=== PATIENT | male | born 1995 | race Caucasian/White ===

== ENCOUNTER 2021-04-16 09:12 | Emergency (ER) | payer MEDICAID ==
[2021-04-16] MEDS ORDERED: LORazepam 2 MG/ML SDV ONE (09:46)
[2021-04-16] MEDS ORDERED: Haloperidol Lactate 5 MG/ML SDV ONE (09:51)
[2021-04-16] MEDS ORDERED: Haloperidol Lactate 5 MG/ML SDV IM ONE (10:00)
[2021-04-16] MEDS ORDERED: LORazepam 2 MG/ML SDV IM ONE (10:00)
[2021-04-16] MEDS ORDERED: Sodium Chloride 0.9% 2.5 ML Syringe FLUSH PRN (10:09)
[2021-04-16] MEDS ORDERED: Ondansetron 4 MG/2 ML SDV IVPUSH ONE (10:09)
[2021-04-16] MEDS ORDERED: Sodium Chloride 0.9% 1,000 ML IV ONE (10:09)
[2021-04-16] MEDS ORDERED: Sodium Chloride 0.9% 10 ML Syringe FLUSH PRN (10:09)
[2021-04-16 11:00] LABS: BLOOD UREA NITROGEN,BUN 14 mg/dL (7.0-18.0); CARBON DIOXIDE,CO2 18.2 mmol/L (21.0-32.0); CHLORIDE,CL 100 mmol/L (98-107); GLUCOSE RANDOM 116 mg/dL (74-106); LIPASE 75 U/L (73-393); POTASSIUM,K 4.3 mmol/L (3.5-5.1); SODIUM,NA 141 mmol/L (136-148)
[2021-04-16] MEDS ORDERED: LORazepam 2 MG/ML SDV IVPUSH ONE (11:20)
[2021-04-16] MEDS ORDERED: OLANZapine 10 MG in Water For Injection, Sterile 2.1 ML IM ONE (12:07)
--- NOTE | 2021-04-16 12:55 | EDM.PDOC ---
ED HPI GENERAL MEDICAL PROBLEM - General Chief Complaint: Behavioral/Psych Stated Complaint: DEHYDRATION Time Seen by Provider: 04/16/21 10:00 - History of Present Illness INITIAL COMMENTS - FREE TEXT/NARRATIVE: HISTORY AND PHYSICAL: History of present illness: This is a 25-year child with history seen for autism who presents ER today with his mom secondary to concern for dehydration. Mother reports he been having issues dehydration for the last 9-month. Patient reports that he has had no recent fevers, vomiting, diarrhea. She reports that he moved his bowels earlier this morning. She reports he had no complaints of abdominal discomfort. She reports he has been having decreased p.o. intake however yesterday she had return to the ER and sat in the parking lot for approximately an hour. While he was here he reports he drank approximately 500 mL of fluid so she had taken home to see how you do. She reports that during the course of the evening he has not eaten or drank very much so he was the ER today for blood evaluation and IV hydration. Mother reports he has had no other symptomatology. She reports that he had multiple new medication changes secondary to his autism and behavior challenges. Review of systems: As per history of present illness and below otherwise all systems reviewed and negative. Past medical history: As per history of present illness and as reviewed below otherwise noncontribu tory. Surgical history: As per history of present illness and as reviewed below otherwise noncontributory. Social history: No reported history of drug abuse. Family history: As per history of present illness and as reviewed below otherwise noncontributory. Physical exam: This patient was seen and evaluated during the 2019 SARS-CoV-2 novel coronavirus pandemic period. Community viral transmission is ongoing at time of this encounter and the emergency department is operating under pandemic response procedures. Constitutional: Patient is oriented to person, place, and time. Appears well- developed and well-nourished. No distress. HEENT: Moist mucous membranes Head: Normocephalic and atraumatic Eyes: Right eye exhibits no discharge. Left eye exhibits no discharge. No scleral icterus Neck: Normal range of motion. No tracheal deviation present. Cardiovascular: Normal rate and regular rhythm. Pulmonary: Effort normal, no respiratory distress. Abdominal: No distention Musculoskeletal: Normal range of motion Neurologic: Alert and awake. Skin: [place], warm and dry. Psychiatric: Labile mood with aggressive behavior at times other times very friendly. Nursing note and vital signs have been reviewed Diagnostics: CBC, CMP, lipase all within normal limits Therapeutics: Ativan, Haldol IM followed by ZOHAIB rios L. Patient also given Zyprexa 10 mg IM after his mom had requested that we give him oral Zyprexa that he is scheduled for today. Assessment and plan: 25-year-old gentleman with a history significant for autism presents ER today secondary to decreased p.o. intake which mother reports is been an ongoing challenge for the last 9 months. Here in the ED, his labs all looked normal and he was given IV fluids as well as Zofran with significant improvement in his affect and symptoms. Patient this time stable for discharge home and continued outpatient monitoring. Reassessment at the time of disposition demonstrates that the patient is in no acute distress. The patient has remained stable throughout the entire ED visit and is without objective evidence for acute process requiring urgent intervention or hospitalization. The patient is stable for discharge, counseling is provided as documented above, discussed symptomatic treatment and specific conditions for return. I have spoken with the patient/caregiver and discussed todays findings, in jerry tion to providing specific details for the plan of care. Questions are answered and there is agreement with the plan. Definitive disposition and diagnosis as appropriate pending reevaluation and review of above. - Related Data Home Meds: Home Meds Ondansetron [Zofran ODT] 4 mg PO Q6H PRN #12 tab.dis 04/16/21 [Rx] ED ROS GENERAL - Review of Systems Review Of Systems: See Below ED EXAM, GENERAL - Physical Exam Exam: See Below Course - Vital Signs Last Recorded V/S: Last Vital Signs Temp Pulse 124 H 04/16/21 11:30 Resp 16 04/16/21 11:30 BP 128/81 04/16/21 11:30 Pulse Ox 97 04/16/21 11:30 - Orders/Labs/Meds Orders: Active Orders 24 hr Category Date Time Status Sodium Chloride 0.9% [Saline Flush] Med 04/16/21 10:09 Active 10 ml FLUSH ASDIRECTED PRN Sodium Chloride 0.9% [Saline Flush] Med 04/16/21 10:09 Active 2.5 ml FLUSH ASDIRECTED PRN Saline Lock Insert [OM.PC] Stat Oth 04/16/21 10:09 Ordered Medication Orders Sodium Chloride (Sodium Chloride 0.9% 10 Ml Syringe) 10 ml FLUSH ASDIRECTED PRN PRN Reason: Keep Vein Open Last Admin: 04/16/21 10:35 Dose: 10 ml Documented by: [id number] Sodium Chloride (Sodium Chloride 0.9% 2.5 Ml Syringe) 2.5 ml FLUSH ASDIRECTED PRN PRN Reason: Keep Vein Open Last Admin: 04/16/21 10:35 Dose: 2.5 ml Documented by: [email or web address] Labs: Laboratory Tests 04/16/21 04/16/21 04/16/21 Range/Units 09:34 10:30 10:45 WBC 8.26 (4.0-11.0) K/uL RBC 5.07 (4.50-5.90) M/uL Hgb 15.4 (13.0-17.0) g/dL Hct 44.8 (38.0-50.0) % MCV 88.4 (80.0-98.0) fL MCH 30.4 (27.0-32.0) pg MCHC 34.4 (31.0-37.0) g/dL RDW Std Deviation 40.6 (28.0-62.0) fl RDW Coeff of Mahad 13 (11.0-15.0) % Plt Count 298 (150-400) K/uL MPV 9.60 (7.40-12.00) fL Neut % (Auto) 87.0 H (48.0-80.0) % Lymph % (Auto) 5.7 L (16.0-40.0) % [place] % (Auto) 7.0 (0.0-15.0) % Eos % (Auto) 0.2 (0.0-7.0) % Baso % (Auto) 0.1 (0.0-1.5) % Neut # (Auto) 7.2 H (1.4-5.7) K/uL Lymph # (Auto) 0.5 L (0.6-2.4) K/uL [place] # (Auto) 0.6 (0.0-0.8) K/uL Eos # (Auto) 0.0 (0.0-0.7) K/uL Baso # (Auto) 0.0 (0.0-0.1) K/uL Nucleated RBC % 0.0 /100WBC Nucleated RBCs # 0 K/uL Sodium 141 (136-148) mmol/L Potassium 4.3 (3.5-5.1) mmol/L Chloride 100 (98-107) mmol/L Carbon Dioxide 18.2 L (21.0-32.0) mmol/L BUN 14 (7.0-18.0) mg/dL Creatinine 1.2 (0.8-1.3) mg/dL Est Cr Clr Drug Dosing 72.72 mL/min Estimated GFR (MDRD) > 60.0 ml/min Glucose 116 H (74-106) mg/dL Calcium 9.2 (8.5-10.1) mg/dL Total Bilirubin 1.3 H (0.2-1.0) mg/dL AST 19 (15-37) IU/L ALT 19 (14-63) IU/L Alkaline Phosphatase 84 (46-116) U/L Total Protein 7.4 (6.4-8.2) g/dL Albumin 4.3 (3.4-5.0) g/dL Globulin 3.1 (2.6-4.0) g/dL Albumin/Globulin Ratio 1.4 (0.9-1.6) Lipase 75 (73-393) U/L Urine Color DARK YELLOW Urine Appearance CLEAR Urine pH 6.0 (5.0-8.0) Ur Specific [place] >= 1.030 (1.001-1.035) Urine Protein NEGATIVE (NEGATIVE) mg/dL Urine Glucose (UA) NEGATIVE (NEGATIVE) mg/dL Urine Ketones >=80 (NEGATIVE) mg/dL Urine Occult Blood NEGATIVE (NEGATIVE) Urine Nitrite NEGATIVE (NEGATIVE) Urine Bilirubin MODERATE H (NEGATIVE) Urine Ictotest NEGATIVE Urine Urobilinogen 0.2 (<2.0) EU/dL Ur Leukocyte Esterase NEGATIVE (NEGATIVE) Meds: Medications Generic Name Dose Route Start Last Admin Trade Name Freq PRN Reason Stop Dose Admin Sodium Chloride 10 ml 04/16/21 10:04/16/21 10:35 Sodium Chloride 0.9% 10 Ml Syringe FLUSH 10 ml ASDIRECTED PRN Administration Keep Vein Open Sodium Chloride 2.5 ml 04/16/21 10:04/16/21 10:35 Sodium Chloride 0.9% 2.5 Ml Syringe FLUSH 2.5 ml ASDIRECTED PRN Administration Keep Vein Open Discontinued Medications Generic Name Dose Route Start Last Admin Trade Name Abimael PRN Reason Stop Dose Admin Haloperidol Lactate Confirm 04/16/21 09:51 04/16/21 10:08 Haloperidol Lactate 5 Mg/Ml Sdv Administered 04/16/21 09:52 Not Given Dose 5 mg .ROUTE .STK-MED ONE Haloperidol Lactate 5 mg 04/16/21 10:00 04/16/21 10:07 Haloperidol Lactate 5 Mg/Ml Sdv IM 04/16/21 10:01 5 mg ONETIME ONE Administration Sodium Chloride 1,000 mls @ 999 mls/hr 04/16/21 10:09 04/16/21 10:35 Normal Saline IV 04/16/21 11:09 999 mls/hr .Bolus ONE Administration Olanzapine 10 mg/ Sterile 2.1 mls @ 999 mls/hr 04/16/21 12:07 04/16/21 12:33 Water IM 04/16/21 12:08 999 mls/hr ONETIME ONE Administration Lorazepam Confirm 04/16/21 09:46 04/16/21 10:08 Lorazepam 2 Mg/Ml Sdv Administered 04/16/21 09:47 Not Given Dose 2 mg .ROUTE .STK-MED ONE Lorazepam 2 mg 04/16/21 10:00 04/16/21 10:07 Lorazepam 2 Mg/Ml Sdv IM 04/16/21 10:01 2 mg ONETIME ONE Administration Lorazepam 2 mg 04/16/21 11:20 04/16/21 11:29 Lorazepam 2 Mg/Ml Sdv IVPUSH 04/16/21 11:21 2 mg ONETIME ONE Administration Ondansetron HCl 4 mg 04/16/21 10:09 04/16/21 10:35 Ondansetron 4 Mg/2 Ml Sdv IVPUSH 04/16/21 10:10 4 mg ONETIME ONE Administration Departure - Departure Time of Disposition: 12:53 Disposition: Home, Self-Care 01 Condition: Good Clinical Impression: Dehydration - Discharge Information Instructions: Dehydration, Adult, [id number] Referrals: Romero Jimenez MD [Primary Care Provider] - Additional Instructions: You were seen and evaluated in the ER today secondary to decreased oral intake and dehydration. All your signs blood tests are within normal limits without any evidence of severe dehydration. His urine did look extremely concentrated and had signs of him not having enough nutrition. In the ED, the patient was given nausea medications as well as medications assist with sedation. Your son will be discharged with a prescription for Zofran dissolvable tablets to take to help with his appetite. Please have him follow-up with his doctor early next week for reevaluation and reassessment. The following information is given to patients seen in the emergency department who are being discharged to home. This information is to outline your options for follow-up care. We provide all patients seen in our emergency department with a follow-up referral. The need for follow-up, as well as the timing and circumstances, are variable depending upon the specifics of your emergency department visit. If you don't have a primary care physician on staff, we will provide you with a referral. We always advise you to contact your personal physician following an emergency department visit to inform them of the circumstance of the visit and for follow-up with them and/or the need for any referrals to a consulting specialist. The emergency department will also refer you to a specialist when appropriate. This referral assures that you have the opportunity for follow-up care with a specialist. All of these measure are taken in an effort to provide you with optimal care, which includes your follow-up. Under all circumstances we always encourage you to contact your private physician who remains a resource for coordinating your care. When calling for follow-up care, please make the office aware that this follow-up is from your recent emergency room visit. If for any reason you are refused follow-up, please contact the [facility] Emergency Department at and asked to speak to the emergency department charge nurse. [facility] [address] [place] [id number] [id number] Sepsis Event Note (ED) - Evaluation Sepsis Screening Result: No Definite Risk - Focused Exam Vital Signs: Vital Signs Pulse Resp BP Pulse Ox 04/16/21 11:30 124 H 16 128/81 97 04/16/21 09:59 145 H 24 H 148/94 H 98 - My Orders Last 24 Hours: My Active Orders 04/16/21 10:09 Sodium Chloride 0.9% [Saline Flush] 10 ml FLUSH ASDIRECTED PRN Sodium Chloride 0.9% [Saline Flush] 2.5 ml FLUSH ASDIRECTED PRN Saline Lock Insert [OM.PC] Stat - Assessment/Plan Last 24 Hours: My Active Orders 04/16/21 10:09 Sodium Chloride 0.9% [Saline Flush] 10 ml FLUSH ASDIRECTED PRN Sodium Chloride 0.9% [Saline Flush] 2.5 ml FLUSH ASDIRECTED PRN Saline Lock Insert [OM.PC] Stat
== END 2021-04-16 13:25 | disposition home or self-care (01) ==
LOC: MW.ED 09:12
DX: E86.0 Dehydration (principal)
CPT/HCPCS: 36415; 80053; 81003; 83690; 85025; 96372; 96374; 96375; 99284; J1630; J2060; J2405; J3490; J7030